=== PATIENT | male | born 1950 | race Caucasian/White ===

== ENCOUNTER 2016-05-20 12:19 | Day surgery (SDC) | payer BC ==
[~2016-05-20 12:19] MED LIST: RINGERS SOLUTION,LACTATED 1,000 ML IV PRN
--- OUTSIDE RECORDS SUMMARY | 2016-05-20 12:23 | XMS REPORT | Continuity of Care Document ---
:1950 Author Organization [facility] ([facility]) Address [address] [place] [address] Phone [phone] Care Team Providers Name Role Phone [phone], Need To Check Primary Care Provider Unavailable Source Comments This disclosure is being made pursuant to the Care Everywhere program, applicable federal and state laws, and may not contain all informaitonavailable regarding this patient.[facility] ([facility]) Active Allergies and Adverse Reactions Not on File Current Medications Not on file Active Problems Not on file Social History Tobacco Use Types Packs/Day Years Used Date Never Assessed Plan of Care Date Type Specialty Providers Description 06/19/2016 Appointment Diabetes Services Default, Other Billg - [facility] [address] [place] [address] [phone] (Fax) Chief Comp: Patient Triston Mckeon MD [address] [place] [address] [phone] (Fax) Reported Reason For Visit Health Maintenance Due Date Last Done Comments HCV Screening 1950 Hepatitis B Vaccine (1 of 3 - Primary Series) 1950 Tdap Vaccine 07/26/1962 Lipid Disorder Screening 07/26/1969 Td Vaccine 07/26/1969 Colonoscopy 07/26/2001 Prostate Cancer Screening 07/26/2001 Zoster Vaccine 2011 Influenza Vaccine: Seasonal (#1) 10/09/2015 Results from Last 3 Months Not on file
[2016-05-20 16:04] VITALS: BP 104/68
--- NOTE | 2016-05-20 17:35 | OR ---
Operative Report - Dictated Report Narrative: OPERATIVE REPORT DATE OF OPERATION: 05/20/2016 PREOPERATIVE DIAGNOSIS: No prior dedicated colon studies. Weight loss POSTOPERATIVE DIAGNOSIS: Normal exam to the mid transverse colon. Incomplete colonoscopy due to anatomy OPERATION: Colonoscopy to the mid transverse colon SURGEON: Elie New MD ANESTHESIA: LUIS ALFREDO Heredia CRNA INDICATIONS FOR PROCEDURE: The patient is a 65-year-old male referred by Dr. Iraheta. The patient has had recent profound weight loss. He has had no previous dedicated colon studies. FINDINGS: Sharp angulation at the splenic flexure, and although negotiated, the scope could not advance beyond the mid transverse colon. Normal exam to that level NARRATIVE OF PROCEDURE: The patient was identified in the holding area, and prior to the administration of anesthetic, a multidisciplinary timeout was observed. With the patient in the left lateral position and after the administration of intravenous sedation, the perineum was inspected. There was no evidence of pilonidal disease or skin breakdown. The external appearance of the anus was normal. Sphincter tone was good. The flexible fiberoptic colonoscope was inserted into the rectum which was insufflated with air. The rectal mucosa and submucosal vascular pattern appeared normal, the prep was seen to be complete. The scope was advanced through the sigmoid colon, up the descending colon to the the splenic flexure where there was sharp angulation. The scope was withdrawn and advanced readvanced several times until it was successfully negotiated around the splenic flexure and a long view of the transverse colon obtained. The scope couldn't successfully be advanced only to the mid transverse colon at which juncture no additional proximal progress could be accomplished. The scope was therefore slowly withdrawn in a circular fashion so that all aspects of colonic mucosa distal to the mid transverse colon were inspected. The colon was very ptotic in nature with a sharp angulation at the splenic flexure. The haustral architecture however appeared well preserved throughout with no evidence of external compression. The mucosa and submucosal vascular pattern appeared normal, specifically there was no gross evidence to suggest colitis or inflammatory bowel disease and no AV malformations were seen. No diverticulosis was demonstrated. No polyps were encountered. The scope was gradually withdrawn to the level of the rectum. As much insufflated air as possible was removed. The scope was withdrawn from the patient and the procedure terminated. The patient tolerated the anesthetic and procedure well without complication and was transferred back to the ambulatory surgery area awake and in stable condition. The patient remained stable throughout a period of postoperative observation. He denied abdominal discomfort and was up without assistance. I shared the operative findings with the patient and his and he was given copies of the photographs which appear in the medical record. I explained that because a complete exam was not accomplished, he would require a completion barium enema which was scheduled for tomorrow. He was discharged home with instructions not to engage in hazardous activity today, but may resume normal activity tomorrow, and should maintain a clear liquid diet until after his barium enema. He is to continue those medications as listed in the history and physical exam. I made arrangements to contact him with the barium enema report and will make additional recommendations for treatment and follow-up based upon that result. Reviewed and electronically signed
== END 2016-05-20 12:20 | disposition home or self-care (01) ==
LOC: AMB 12:19
PROVIDERS: ATTEND Surgery
PROC: 0DJD8ZZ Inspection of Lower Intestinal Tract, Via Natural or Artificial Opening Endoscopic (ICD-10-PCS; principal; 2016-05-20 13:35)
DX: Z12.11 Encounter for screening for malignant neoplasm of colon (principal); J44.9 Chronic obstructive pulmonary disease, unspecified; E03.9 Hypothyroidism, unspecified; M81.0 Age-related osteoporosis without current pathological fracture; F17.200 Nicotine dependence, unspecified, uncomplicated; Z68.1 Body mass index [BMI] 19.9 or less, adult